=== PATIENT | male | born 1945 | race Caucasian/White ===

== ENCOUNTER 2024-05-10 14:04 | Inpatient (IN) | payer MEDICARE, OTHER, SELFPAY ==
[2024-05-10 09:49] VITALS: BP 121/54
--- NOTE | 2024-05-10 09:57 | ED.GENMED ---
History of Present Illness
General
Chief Complaint: Breathing Problem
Source: ambulance crew
Exam Limitations: altered mental status and dementia
Time Seen by Provider: 05/10/24 09:49
Nursing documentation reviewed up to this point in time: agreed with
History of Present Illness
History of Present Illness:
78-year-old male presents emergency ferment due to altered mental status and respiratory distress. Oxygen 80% on room air. He is from [facility]. He has limited verbal responses. History of CVA.
Past History
Past History
ED Past Medical History: COPD, CVA (Right hemiparesis, Aphasia), HTN, Psychiatric (Depression) and Other (Cellulitis, dementia, aphasia, PVD,)
ED Past Surgical History: None
Social History
Tobacco: Former smoker
Alcohol: None
Drug: None
Personal: Single
Living: shelter
Employment: Not employed
Family History
Family History: Unable to obtain
Review of Systems
Review of Systems
Allergies reviewed?: Yes
Unable to obtain full review of systems at this time due to: dementia
All Other Systems: Not applicable
Phy Exam
Physical Exam
Physical Exam:
Physical Exam
General: Afebrile
Neck: supple. no meningeal signs. normal posterior pharynx
Heart: s1/s2 regular rate and rhythm, no murmur. equal radial
pulses.
HEENT: Pupils equal round reactive to light, EOMI
Lungs: no acute respiratory distress. clear bilaterally
Abdomen: normal bowel sounds. not tender. no CVAT
Neuro: alert but not oriented. no focal neurological deficits cranial nerves II through XII intact
Skin: no rash
Psychiatric: well kept. interactive and cooperative
Extremities: no edema. no calf tenderness. negative homans. good distal pulses
Scores
Heart Failure Risk
Heart Failure Risk Score: Not Applicable
Sepsis
Sepsis Screening
Sepsis Assessment: Sepsis
Sepsis Screen
Sepsis Screen: Sepsis
Date: 05/10/24
Time: 15:59
Course
Orders/Labs/Results
Orders:
Orders
05/10/24 09:55
Cardiac Monitoring- Treatment ONCE
IV Insert/Care/Rem.- Treatment PRN
O2 Therapy [RESP] Stat
Nasal Cannula Liter Flow: 6 LPM
Titrate/Wean O2 to maintain O2 sat greater than (%): 92
Pulse Ox/cont/shift [RESP] Stat
Quantity: 1
05/10/24 09:56
Electrocardiogram (*1) Stat
Reason for Study: Other
Other Reason for Exam: pneumonia
EKG- Treatment ONCE
CR Chest Single View Urgent
Reason For Exam: hypoxia, altered mental status
05/10/24 10:13
Complete Blood Count/With Diff Urgent
Comprehensive Metabolic Panel Urgent
Lactic Acid Q4H
Comment: CANCEL 2nd LACTIC ACID IF 1st LACTIC ACID IS LESS THAN 2
NT-proBNP Urgent
Troponin I Urgent
05/10/24 13:19
Piperacillin/Tazo 2.25 Gram [Zosyn] 2.25 grams in 50 ml IV NOW
05/10/24 13:21
Vancomycin [Vancocin] 2,000 mg 0.9% Sodium Chloride 500 ml [Nss] 500 ml IV NOW
05/10/24 13:28
0.9% Sodium Chloride 1000 ml [Nss] 1,000 ml IV BOLUS
05/10/24 13:45
Azithromycin 500 mg/250 ml [Zithromax Infusion] 500 mg in 250 ml IV NOW
Ipratropium/Albuterol Sulfate [Duoneb] 3 ml INH R NOW ONE
05/10/24 13:47
Admit/Transfer Patient As Directed
Co-Sign Provider:
Level of Care: Inpatient admission
Assign to:: Telemetry
Physician / Group: Sultana Sauceda
Diagnosis: hypoxic resp insufficiency, CAP
Reason for Telemetry: Chest Pain syndromes
Date to Stop Telemetry: 05/12/24
Time to Stop Telemetry: 11:00
Reason for Hospitalization: hypoxic resp insufficiency, CAP
Expected length of stay greater than two midnights?: Yes
ELOS- Estimated Length of Stay in days: 3
I certify the patient meets the requirements for IP care: Yes
PRN Pain Medication Management As Directed
May give lesser potent ordered pain med per pt: Yes
preference::
Protocol:: Medication orders for pain may be administered in a
manner that supports deferring to patient preference
when the pt is:
- Requesting an ordered lesser potent pain medication.
Least to most potent pain medications are defined
as: acetaminophen < NSAID < tramadol < opioids
(morphine, oxycodone, hydromorphone).
- Requesting a lesser dose of the same medication IF
ORDERED.
- Requesting a less intrusive route of administration
if both routes are prescribed by the provider (PO <
IV).
05/10/24 13:50
Code Status As Directed
Resuscitation Status: Do not resuscitate
Reached after discussion with pt or family/Healthcare POA: Yes
CefTRIAXone [Rocephin] 1,000 mg IV NOW STA
05/10/24 13:52
DNR Bracelet Application ONCE
05/10/24 13:59
Sterile Water [Sterile Water For Injection] 10 ml IV NOW STA
05/10/24 14:00
Speech Therapy Eval & Treat Routine
05/10/24 14:05
COVID-19 Antigen Urgent
Source: Nasal Swab
Lactic Acid Q4H
Comment: CANCEL 2nd LACTIC ACID IF 1st LACTIC ACID IS LESS THAN 2
Influenza A+B Rapid Molecular Urgent
ALE Source: Nasal Swab
Specimen Description:
05/12/24 11:00
DC Protocol for Telemetry ONCE
Abnormal Lab Results
05/10/24
10:13
MCV 95.4 H fL
(80.0-94.0)
MCHC 30.7 L g/dL
(33.0-37.0)
Absolute Neuts (auto) 9.0 H 10^3/uL
(1.4-6.5)
Absolute Lymphs (auto) 1.0 L 10^3/uL
(1.2-3.4)
Neutrophils % 84.9 H %
(42.2-75.2)
Lymphocytes % 9.4 L %
(20.5-51.1)
BUN 51 H mg/dl
(9-20)
Creatinine 1.9 H mg/dL
(0.7-1.3)
Glucose 160 H mg/dl
(70-99)
Lactic Acid 2.1 H mmol/L
(0.7-2.0)
AST 78 H U/L
(17-59)
Troponin I 0.049 H* ng/ml
05/10/24 10:13
05/10/24 10:13
Vital Signs
Initial and Last Documented VS:
Initial Vital Signs
Pulse Resp BP Pulse Ox
113 20 121/54 89
05/10/24 09:49 05/10/24 09:49 05/10/24 09:49 05/10/24 09:49
Last Documented Vital Signs
Temp Pulse Resp BP Pulse Ox
99.3 F 106 27 122/61 94
05/10/24 10:24 05/10/24 15:00 05/10/24 15:00 05/10/24 11:00 05/10/24 10:24
MDM/Problems Addressed
Differential Diagnosis Includes:
Pneumonia, CHF, COPD
MDM/Problems Addressed:
78-year-old male with pneumonia, hypoxia. Admit to hospitalist.
Chronic conditions affecting care: COPD and Other (Dementia)
Acute Exacerbation and/or Progression of Chronic Illness: COPD and Other (Dementia)
*Radiology
Radiology exam reviewed: radiology read reviewed (Chest x-ray shows right basilar opacification)
*Pulse Oximetry
Patient hypoxic: yes
*EKG
Interpreted by ED Provider?: Yes
EKG Intrepretation Date: 05/10/24
EKG Intrepretation Time: 10:09
Interpretation: abnormal
Comparison EKG: no comparison EKG present
Heart Rate: 115
Rate: tachycardiac
Rhythm: sinus tachycardia
[place]: normal axis
Interval: normal interval
QRS Pattern: normal QRS
Ischemia: no ischemia
*Chemical Production Technician Interpretation
Rate: tachycardiac
Interpretation: abnormal
Heart Rate: 112
Rhythm: sinus tachycardia
*Critical Care Note
Total Time (30-74mins, 75-104mins- exclusive of procedures): 30
comment:
Critical care statement: A total of 30 minutes of critical care time was provided for this patient. This includes management of unstable vital signs, evaluation of the patient at bedside, reviewing the patient's pertinent medical records, discussion
with consultants, review of old EKGs and review of pertinent medical records. This time with separate from time utilized to perform the aforementioned documented procedures
Data Reviewed
Review of Other/Old Records Reveals: Labs (creatinine 0.9, on 08/21/19)
Source: records
Patient Management
Social determinants of health affecting care: Living situation and Poor social support
Discussion with other providers: Hospitalist
Escalation/DeEscalation of care consider admission/obs:
admit indicated
ED Attending Note
-
Portions of this chart may have been created with voice recognition software.� Occasional wrong word or��sound alike� substitutions may have occurred due to the inherent limitations of voice recognition software.
Discharge Plan
Departure
Patient Disposition: Admit
Date of Disposition: 05/10/24
Time of Disposition: 13:23
Admit to: Telemetry
Presentation/result/management discussed w/ accepting MD/DO: Hospitalist
Patient with high blood pressure during this ER visit?: Yes
Condition: Fair
Discharge Problem:
Pneumonia, Hypoxia, Acute renal failure
Interventions
Interventions:
*Risk Screen - Suicide Last Done: 05/10/24 09:50
*General Assessment Last Done: 05/10/24 09:50
*Neglect/Abuse Screening Last Done: 05/10/24 09:50
ED- Fall Risk Assessment Last Done: 05/10/24 10:24
*ED COVID-19 Vaccine History Last Done: 05/10/24 09:50
*Nursing Disposition Last Done: 05/10/24 15:54
ED- Cardiac Assessment Last Done: 05/10/24 10:24
ED- Pulmonary Assessment Last Done: 05/10/24 10:24
[2024-05-10 10:28] LABS: % Basophils 0.2 % (0-2); % Immature Granulocytes 0.3 % (0-0.5); % Lymphocytes 9.4 % (20.5-51.1); % Monocytes 5.2 % (1.7-9.3); % Neutrophils 84.9 % (42.2-75.2); Absolute Monocytes 0.6 10^3/uL (0.1-0.6); Hematocrit 47.5 % (39.0-52.0); Hemoglobin 14.6 g/dL (13.0-18.0); Mean Corp Hgb Conc. 30.7 g/dL (33.0-37.0); Mean Corpuscular Hgb 29.3 pg (27.0-31.0); Mean Corpuscular Volume 95.4 fL (80.0-94.0); Mean Platelet Volume 9.6 fL (7.4-10.4); Nucleated Red Blood Cells % 0 % (-); Platelet Count 220 10^3/uL (130-400); Red Blood Cell Count 4.98 10^6/uL (4.70-6.10); Red Cell Dist. Width 14.4 % (11.5-14.5); White Blood Cell Count 10.6 10^3/uL (4.8-10.8)
[2024-05-10 10:38] LABS: Lactic Acid 2.1 mmol/L (0.7-2.0)
[2024-05-10 10:43] LABS: ALT (SGPT) 32 U/L (0-50); AST (SGOT) 78 U/L (17-59); Albumin 3.5 g/dl (3.5-5.0); Alkaline Phosphatase 85 U/L (38-126); Blood Urea Nitrogen 51 mg/dl (9-20); Calcium 8.4 mg/dl (8.4-10.2); Carbon Dioxide 24 mmol/L (22-30); Chloride 107 mmol/L (98-107); Glucose 160 mg/dl (70-99); Potassium 4.2 mmol/L (3.5-5.1); Sodium 142 mmol/L (135-145); Total Bilirubin 0.6 mg/dl (0.2-1.3); Total Protein 6.6 g/dl (6.3-8.2); eGFR 35.88
[2024-05-10 10:53] LABS: NT-proBNP 1010 pg/ml; Troponin I 0.049 ng/ml
[2024-05-10 11:00] VITALS: BP 122/61
--- NOTE | 2024-05-10 13:29 | HPS.HSE ---
Addendum entered and electronically signed by Sultana Sauceda MD 05/14/24 07:09:
Non-ischemic myocardial injury
Addendum entered and electronically signed by Sultana Sauceda MD 05/10/24 19:17:
non-SC Troponin Elevation in setting of Influenza
-trend
Addendum entered and electronically signed by Sultana Sauceda MD 05/10/24 15:01:
Patient is Influenza positive, will start Tamiflu
Addendum entered and electronically signed by Sultana Sauceda MD 05/10/24 14:05:
attempted to update contact in chart and received busy signal
Original Note:
Family Physician
-
Family Physician: Nick Shoemaker
Chief Complaint
-
shortness of breath
History of Present Illness
Mr. Chris Nick is a 78 yo man with hx CVA (right Hemiparesis, aphasia), [place] resident at [facility], COPD, essential HTN, Depression, Seizures, CKD IIIa presents to the ER with change in mentation and low pulse ox seen at [place].
Patient unable to give history. He only answers yes or no answers. He appears flushed with wet sounding cough. He was found to have SpO2 80% at IA an is now on 6L. He denies pain.
Medical History
Past Medical History
Past Medical History: Reports Other
Additional Past Medical History:
CVA (right Hemiparesis, aphasia)
COPD
Essential HTN
Depression
Seizures
CKD IIIa
Past Surgical History: Reports Other
Social History
Unable to obtain full social history at this time due to: Patient Non-verbal (expressive aphasia )
Family History
Family History: Not pertinent
Allergies / Home Medications
Allergies reflects when Allergies were last updated in [employer].
Home Medications with original date entered in [employer]
Allergy/Medication List:
Allergies
Allergy/AdvReac Type Severity Reaction Status Date / Time
aspirin Allergy Unknown Verified 08/20/19 16:04
Home Medications
acetaminophen 325 mg tablet 650 mg PO Q4HPRN PRN mild pain, 1-4/fever>100F 02/09/13
latanoprost 0.005 % eye drops 1 drp BOTH EYES QPM 02/09/13
magnesium hydroxide 400 mg/5 mL oral suspension 30 ml PO DAILYPRN PRN if no bm in 3 days 02/09/13
sodium phosphates 19 gram-7 gram/118 mL enema (Enema) 118 ml FL DAILYPRN PRN if dulcolax ineff in 24H ##0 02/07/15
bisacodyl 10 mg rectal suppository (OneLAX Bisacodyl) 10 mg FL DAILYPRN PRN if MOM ineff in 24 hours 03/29/17
levetiracetam 500 mg tablet 500 mg PO BID 01/17/18
atorvastatin 20 mg tablet 20 mg PO QPM 02/07/18
clopidogrel 75 mg tablet 75 mg PO DAILY 02/07/18
ipratropium 0.5 mg-albuterol 3 mg (2.5 mg base)/3 mL nebulization soln 3 ml inhalation R Q6HPRN PRN sob/wheezing 02/07/18
docusate sodium 100 mg capsule 100 mg PO HS 06/09/18
pilocarpine HCl 1 % eye drops 1 drops BOTH EYES DAILY 08/20/19
famotidine 20 mg tablet (Pepcid) 20 mg PO DAILY 05/10/24
guaifenesin 600 mg tablet, extended release 12 hr (Mucus Relief ER) 600 mg PO BID 05/10/24
ipratropium 20 mcg-albuterol 100 mcg/actuation mist for inhalation 1 puff inhalation R [id number] PRN CHF 05/10/24
lisinopril 5 mg tablet 5 mg PO DAILY 05/10/24
nifedipine 30 mg tablet,extended release 90 mg PO DAILY 05/10/24
Review of Systems
-
History Source: Patient
A 12 point ROS was completed and negative except as noted: Yes
Physical Exam
Vital Signs
Vital Signs
Temp Pulse Resp BP Pulse Ox
99.3 F 109 31 122/61 94
05/10/24 10:24 05/10/24 11:45 05/10/24 11:45 05/10/24 11:00 05/10/24 10:24
Physical Exam
General: Other (appears flushed with wet sounding cough, no 6L NC )
HEENT: PERRLA
Respiratory: Rhonchi; No Wheezes
Cardiac: S1/S2 and Regular Rhythm
GI: Soft, Non Tender and Non Distended
Musculoskeletal: No Edema
Skin: Warm and Dry; No Rash
Neuro: Awake, Alert and Other (expressive aphasia, right-sided hemiparesis. follows commands and can lift left arm )
Psych: Calm
Laboratory Results
-
05/10/24 10:13
05/10/24 10:13
Laboratory Results
Lactic Acid 2.1 mmol/L (0.7-2.0) H 05/10/24 10:13
Total Bilirubin 0.6 mg/dl (0.2-1.3) 05/10/24 10:13
AST 78 U/L (17-59) H 05/10/24 10:13
ALT 32 U/L (0-50) 05/10/24 10:13
Alkaline Phosphatase 85 U/L (38-126) 05/10/24 10:13
Troponin I 0.049 ng/ml H* 05/10/24 10:13
Data Reviewed
-
Diagnostic Radiology: Report Reviewed by me
Lab Data: Labs Reviewed by me
Impression/Plan
-
Mr. Chris Nick is a 78 yo man with hx CVA (right Hemiparesis, aphasia), [place] resident at [facility], COPD, essential HTN, Depression, Seizures, CKD IIIa presents to the ER with change in mentation and low pulse ox seen at [place].
Triage VS: T 99.3, P 113, RR 20, BP 121/54, SpO2 89%
LABS: WBC 10.6, Hg 14.6, PLT 220, Na 142, K+ 4.2, Cl 107, BUN 51, Cr 1.9, Glucose 160, Lactate 2.1, Trop 0.049, BNP 1010
CXR:
IMPRESSION:
Low lung volumes.
Mild right basilar opacification most likely representing subsegmental atelectasis. Pneumonia cannot be excluded.
MAR: Vanc/Zosyn
Severe Sepsis secondary to pneumonia
Acute Hypoxia respiratory insufficiency 2/2 above
-patient with rhonchi on lung exam and wet sounding cough.
-Will check Flu and Covid
-Start treatment for CAP with Ceftriaxone/Azithromycin
-receiving 1L IVF in ER for lactate 2.1, trend and bolus as needed
-NS @ 80
-O2 support as needed
-Given risk for aspiration in setting of fatigue/change in mentation noted at IA, will keep NPO until ST Eval; meds OK with apple sauce (eats regular diet/thins at IA)
-duonebs standing and PRN
-Mucinex, Acapella
-PT/OT/ST
Expressive Aphasia
Hx CVA
[place] Resident
-FUR TRIMMING MACHINE OPERATOR Plavix/Statin
Hx COPD
-no active wheezing heard on exam
-duonebs as above
NESSA on CKD IIIa
-creatinine was 1.16 02/2023
-NESSA in setting of sepsis
-IVF as above
-hold FUR TRIMMING MACHINE OPERATOR ERIKA-I
Essential Hypertension
-hold FUR TRIMMING MACHINE OPERATOR Lisinopril with NESSA
-FUR TRIMMING MACHINE OPERATOR Nifedeipine
Epilepsy
-IV Keppra for now - change to oral based on ability to take PO meds
DVT PPx: Hep subQ
DNR - based on POLST form
76 minutes spent on patient care
[2024-05-10 14:37] LABS: Lactic Acid 0.9 mmol/L (0.7-2.0)
[2024-05-10 14:40] LABS: COVID-19 Antigen Negative (Negative)
[2024-05-10] MEDS: ROCEPHIN 1000 MG IV (14:47)
[2024-05-10] MEDS: ZITHROMAX INFUSION 250 IV (14:50)
[2024-05-10] MEDS: NSS 1000 IV ×2 (14:52→17:18)
[2024-05-10] MEDS: DUONEB 3 ML INH ×3 (14:54→19:53)
[2024-05-10] MEDS: STERILE WATER FOR INJECTION 10 ML IV (14:57)
--- NOTE | 2024-05-10 15:59 | PTOTSP ---
Dysphagia Evaluation
Patient with a history of mild-moderate oral/pharyngeal dysphagia per video swallow study 03/16/2018. Chronic risk factors for dysphagia noted (i.e., CVA, COPD) and elevated given acute illness with sepsis, flu and PNA. Cannot rule out worsened
pharyngeal dysphagia bedside.
Recommend:
1. IDDSI Level 5 Minced and Moist, Thin Liquids
2. Medications: in puree
3. Strategies: upright to 90 degrees, full supervision/assistance, single sips/bites, reflux precautions
4. Oral care 3x daily
5. If clinical concerns for aspiration consider repeat video swallow study if aligned with patient goals. Patient shook head no when this was discussed.
6. Dysphagia therapy at the acute care level for education, instruction in compensations, and to determine if diet advancement appropriate
[2024-05-10 16:16] VITALS: BP 120/63; BMI 25.7
--- NOTE | 2024-05-10 16:30 | PTCARENOTE ---
Received patient from ED. Patient here with CAP.
Placed on Telemetry (Box #11), SR-ST with PAC's and PVC's. AAOXself, with expressive aphasia and right sided hemiparesis/paralysis. Completed incontinence care, placed condom catheter.
[2024-05-10] MEDS: TAMIFLU 75 MG PO (17:19)
[2024-05-10] MEDS: XALATAN OPHTHALMIC SOLUTION 1 DROP BOTH EYES (17:19)
[2024-05-10] MEDS: LIPITOR 20 MG PO (17:20)
[2024-05-10] MEDS: KEPPRA 500 MG IV (20:18)
[2024-05-10] MEDS: HEPARIN 5000 UNITS SC (20:18)
[2024-05-10] MEDS: MUCINEX 600 MG PO (20:18)
[2024-05-10] MEDS: COLACE PO (20:58)
[2024-05-10 23:26] VITALS: BP 121/56
[2024-05-11] VITALS (9 sets, daily range): BP systolic 88–127; BP diastolic 52–68; PULSE 137; O2SAT 90; BMI 25.7
[2024-05-11] MEDS: DUONEB 3 ML INH ×4 (00:44→19:35)
[2024-05-11 03:56] LABS: % Basophils 0.1 % (0-2); % Immature Granulocytes 0.4 % (0-0.5); % Lymphocytes 14.5 % (20.5-51.1); % Monocytes 6.9 % (1.7-9.3); % Neutrophils 78.1 % (42.2-75.2); Absolute Monocytes 0.5 10^3/uL (0.1-0.6); Absolute Neutrophils 5.5 10^3/uL (1.4-6.5); Hematocrit 42.8 % (39.0-52.0); Hemoglobin 13.1 g/dL (13.0-18.0); Mean Corp Hgb Conc. 30.6 g/dL (33.0-37.0); Mean Corpuscular Hgb 29.6 pg (27.0-31.0); Mean Corpuscular Volume 96.6 fL (80.0-94.0); Mean Platelet Volume 9.4 fL (7.4-10.4); Nucleated Red Blood Cells % 0 % (-); Platelet Count 177 10^3/uL (130-400); Red Blood Cell Count 4.43 10^6/uL (4.70-6.10); Red Cell Dist. Width 14.7 % (11.5-14.5)
[2024-05-11] MEDS: NSS 1000 IV ×2 (04:08→17:25)
[2024-05-11 04:17] LABS: Blood Urea Nitrogen 41 mg/dl (9-20); Calcium 7.8 mg/dl (8.4-10.2); Carbon Dioxide 25 mmol/L (22-30); Chloride 111 mmol/L (98-107); Estimated Creatinine Clearance 44 ml/min; Glucose 94 mg/dl (70-99); Magnesium 2.7 mg/dl (1.6-2.3); Potassium 4.3 mmol/L (3.5-5.1); Sodium 143 mmol/L (135-145); eGFR 51.77
[2024-05-11 04:20] LABS: Troponin I 0.019 ng/ml
[2024-05-11] MEDS: EYE BOTH EYES (08:37)
[2024-05-11] MEDS: KEPPRA 500 MG IV ×2 (08:37→20:17)
[2024-05-11] MEDS: HEPARIN 5000 UNITS SC ×2 (08:37→20:18)
[2024-05-11] MEDS: PEPCID 20 MG PO (08:37)
[2024-05-11] MEDS: PROCARDIA XL (EXTENDED RELEASE) 90 MG PO (08:37)
[2024-05-11] MEDS: ISOPTO CARPINE BOTH EYES (08:37)
[2024-05-11] MEDS: PLAVIX 75 MG PO (08:37)
[2024-05-11] MEDS: TAMIFLU 30 MG PO ×2 (08:37→20:18)
[2024-05-11] MEDS: MUCINEX 600 MG PO ×2 (08:38→20:17)
--- NOTE | 2024-05-11 10:39 | PN.CDI ---
CDI
- -
CDI:
Physician Documentation Request
Admit Date: 05/10/24 14:04
Dear Doctor Sohail,
Patient admitted for sepsis.
05/10 H&P: 'non-MS Troponin Elevation in setting of Influenza'
Laboratory Tests
05/10/24 05/10/24
10:13 20:16
Troponin I 0.049 H* 0.020
Please clarify the following regarding the documented troponin elevation:
Non-ischemic myocardial injury
Lab abnormality
Other
Use of terms such as suspected, likely, concern for, or probable (associated with a specific diagnosis that is being evaluated, monitored, or treated as if it exists) are acceptable and can be coded in the inpatient setting, when documented at the
time of discharge.
Thank you,
Renetta Mcdaniel RN, BSN
CDI Specialist
Available via [employer] text
Please use your independent medical judgment in providing your response.
--- NOTE | 2024-05-11 10:42 | PTCARENOTE ---
pt wakes to name. no movement seen in right arm or leg. expressive aphasia. can let needs known. 6lnc. breath sounds course diminished. inc of stool. and urine
--- NOTE | 2024-05-11 11:30 | W.PN.HOSP.TC ---
Today's Communication/Plan
-
check Echo
continue IVF, monitor for overload
continue IV Abx, Tamiflu
wean O2 as able
Assessment / Plan
Assessment / Plan
Assessment:
Severe Sepsis (tachycardia, tachypnea, lactic acidosis) secondary to pneumonia and Influenza A
Acute Hypoxia respiratory insufficiency 2/2 above
- wean O2 as able; currently on 6L NC
- continue Ceftriaxone, Azithromycin day 1. Check sputum. COVID negative.
- continue Tamiflu day 1
- respiratory precautions
- continue IVF
- ST evaluation prior to PO meds, diet
- mucolytics, IS, Acapella
- standing/prn nebs
- PT/OT
Nonischemic trop elevation
- peaked at .049
Expressive Aphasia
Hx CVA with R sided weakness
- continue Plavix/Statin
Hx COPD
- no active wheezing heard on exam
- duonebs as above
NESSA on CKD IIIa
- creatinine was 1.16 02/2023
- NESSA in setting of sepsis
- IVF as above
- hold THREAD PULLING MACHINE ATTENDANT ERIKA-I
- follow BMP
Essential Hypertension
- hold ERIKA and Nifedipine; hypotension with sepsis
Epilepsy
- IV Keppra for now - change to oral based on ability to take PO meds
DVT ppx: SC heparin
Code: DNR/DNI
Anticipated Discharge: > 48 hours
Subjective/Interval History
-
Date of Service: May 11, 2024
Objective Data
-
Labs:
Laboratory Results
24 05/11/24
03:37 03:38
WBC 7.0
Hgb 13.1
Hct 42.8
Plt Count 177
Sodium 143
Potassium 4.3
Chloride 111 H
Carbon Dioxide 25
BUN 41 H
Creatinine 1.4 H
Glucose 94
Calcium 7.8 L
Vital Signs:
Vital Signs
Temp Pulse Resp BP Pulse Ox
98.4 F 126 22 92/60 93
05/11/24 07:22 05/11/24 08:37 05/11/24 07:36 05/11/24 08:37 05/11/24 07:36
I&O
05/10/24 05/11/24 05/12/24
06:59 06:59 06:59
Output Total 240 / 240
Balance -240 / -240
Data Reviewed
-
Total Time Spent with Patient (in minutes): 44
Labs: Labs Reviewed by me
[2024-05-11] MEDS: ZITHROMAX 500 MG PO (13:31)
[2024-05-11] MEDS: ROCEPHIN 1000 MG IV (13:32)
[2024-05-11] MEDS: STERILE WATER FOR INJECTION 10 ML IV (13:32)
[2024-05-11] MEDS: DUONEB INH (15:27)
[2024-05-11] MEDS: LIPITOR 20 MG PO (17:24)
[2024-05-11] MEDS: XALATAN OPHTHALMIC SOLUTION 1 DROP BOTH EYES (17:24)
[2024-05-11] MEDS: COLACE 100 MG PO (20:19)
[2024-05-12 03:05] VITALS: BP 115/61
[2024-05-12] MEDS: NSS 1000 IV (05:03)
[2024-05-12 06:00] VITALS: BMI 26.2
[2024-05-12 07:30] VITALS: BP 113/69
[2024-05-12] MEDS: DUONEB 3 ML INH ×4 (07:32→19:45)
[2024-05-12 07:43] LABS: Hematocrit 39.2 % (39.0-52.0); Hemoglobin 12.1 g/dL (13.0-18.0); Mean Corp Hgb Conc. 30.9 g/dL (33.0-37.0); Mean Corpuscular Hgb 29.8 pg (27.0-31.0); Mean Corpuscular Volume 96.6 fL (80.0-94.0); Mean Platelet Volume 9.6 fL (7.4-10.4); Platelet Count 153 10^3/uL (130-400); Red Blood Cell Count 4.06 10^6/uL (4.70-6.10); Red Cell Dist. Width 14.3 % (11.5-14.5); White Blood Cell Count 4.2 10^3/uL (4.8-10.8)
[2024-05-12 08:13] LABS: ALT (SGPT) 34 U/L (0-50); AST (SGOT) 59 U/L (17-59); Albumin 2.5 g/dl (3.5-5.0); Alkaline Phosphatase 73 U/L (38-126); Blood Urea Nitrogen 29 mg/dl (9-20); Calcium 7.4 mg/dl (8.4-10.2); Carbon Dioxide 24 mmol/L (22-30); Chloride 108 mmol/L (98-107); Estimated Creatinine Clearance 56 ml/min; Glucose 89 mg/dl (70-99); Potassium 4.1 mmol/L (3.5-5.1); Sodium 137 mmol/L (135-145); Total Bilirubin 0.2 mg/dl (0.2-1.3); Total Protein 5.1 g/dl (6.3-8.2); eGFR > 60.00
[2024-05-12] MEDS: KEPPRA 500 MG IV ×2 (09:25→20:44)
[2024-05-12] MEDS: HEPARIN 5000 UNITS SC ×2 (09:26→20:44)
[2024-05-12] MEDS: PEPCID 20 MG PO (09:27)
[2024-05-12] MEDS: TAMIFLU 30 MG PO ×2 (09:27→20:45)
[2024-05-12] MEDS: ISOPTO CARPINE BOTH EYES (09:28)
[2024-05-12] MEDS: MUCINEX 600 MG PO ×2 (09:28→20:45)
[2024-05-12] MEDS: PLAVIX 75 MG PO (09:28)
[2024-05-12] MEDS: EYE BOTH EYES (09:28)
--- NOTE | 2024-05-12 09:52 | W.PN.HOSP.TC ---
Today's Communication/Plan
-
wean O2
cap IVF
ST evaluation
Assessment / Plan
Assessment / Plan
Assessment:
Severe Sepsis (tachycardia, tachypnea, lactic acidosis) secondary to pneumonia and Influenza A
Acute Hypoxia respiratory insufficiency 2/2 above
- wean O2 as able; currently on 6L NC
- continue Ceftriaxone, Azithromycin day 2. Check sputum. COVID negative.
- continue Tamiflu day 2
- respiratory precautions
- cap IVF
- ST evaluation pending
- mucolytics, IS, Acapella
- standing/prn nebs
- PT/OT
Nonischemic trop elevation
- peaked at .049
Expressive Aphasia
Hx CVA with R sided weakness
- continue Plavix/Statin
Hx COPD
- no active wheezing heard on exam
- duonebs as above
NESSA on CKD IIIa
- creatinine was 1.16 02/2023
- NESSA in setting of sepsis
- IVF as above
- hold ORGAN PIPE FINISHER ERIKA-I
- follow BMP
Essential Hypertension
- hold ERIKA and Nifedipine; avoiding hypotension with sepsis
Epilepsy
- IV Keppra for now - change to oral based on ability to take PO meds
DVT ppx: SC heparin
Code: DNR/DNI
Anticipated Discharge: > 48 hours
Subjective/Interval History
-
Date of Service: May 12, 2024
remains on 6L NC, 96% saturation
Denies any changes
Objective Data
-
Labs:
Laboratory Results
05/12/24
07:10
WBC 4.2 L
Hgb 12.1 L
Hct 39.2
Plt Count 153
Sodium 137
Potassium 4.1
Chloride 108 H
Carbon Dioxide 24
BUN 29 H
Creatinine 1.1
Glucose 89
Calcium 7.4 L
Total Bilirubin 0.2
AST 59
ALT 34
Alkaline Phosphatase 73
Vital Signs:
Vital Signs
Temp Pulse Resp BP Pulse Ox
98.4 F 92 20 113/69 96
05/12/24 07:30 05/12/24 07:36 05/12/24 07:36 05/12/24 07:30 05/12/24 09:00
I&O
05/11/24 05/12/24 05/13/24
06:59 06:59 06:59
Intake Total 1680 / 1680
Output Total 240 / 240 180 / 180
Balance -240 / -240 1500 / 1500
Physical Exam
-
General: No Apparent Distress
HEENT: Normocephalic and Atraumatic
Respiratory: Rhonchi and Decreased Breath Sounds
Cardiac: Regular Rhythm and S1/S2
GI: Soft and Nontender
Genito-urinary: No Costovertebral Tender
Musculoskeletal: No Clubbing
Neuro: AO x 3
Hematologic / Lymphatic: No Lymphadenopathy
Psych: Calm
Data Reviewed
-
Total Time Spent with Patient (in minutes): 45
Labs: Labs Reviewed by me
[2024-05-12 11:38] VITALS: BP 134/58
--- NOTE | 2024-05-12 11:54 | PTOTSP ---
Speech therapy
Per RN, patient was seen to pocket PO on right side of oral cavity.
Presentation: Patient was seen laying in his bed and confused. Patient was not oriented to any of the orientation questions. With multiple choice options, patient was able to state his name. Patient was very agitated and stated that he was upset
with his condition. FIELD TALENT QUALIFICATION SPECIALIST spent majority of the session educating patient on FIELD TALENT QUALIFICATION SPECIALIST recommendations and findings. FIELD TALENT QUALIFICATION SPECIALIST explained to patient the purpose of dysphagia therapy in which patient verbalized an understanding.
FIELD TALENT QUALIFICATION SPECIALIST attempted to complete oral care in which patient refused and took out his dentures (top). Dentures, of note, appeared to have debris on them. FIELD TALENT QUALIFICATION SPECIALIST offered to clean the dentures in which patient refused and placed them back in.
FIELD TALENT QUALIFICATION SPECIALIST provided education on aspiration, oral hygiene, and the importance of oral hygiene in reference to aspiration pna. Patient verbalized an understanding and refused to allow FIELD TALENT QUALIFICATION SPECIALIST to perform oral care.
FIELD TALENT QUALIFICATION SPECIALIST spent time educating patient on PO trials. Patient agreed to trial PO. At baseline, patient demonstrated wet coughing, throat clearing, and wet appearing labored breathing. FIELD TALENT QUALIFICATION SPECIALIST attempted to elevate patient's head in which he screamed, became
agitated and refused to remain upright. Patient's wet vocal quality and coughing continued. FIELD TALENT QUALIFICATION SPECIALIST lowered his head and educated patient on aspiration precautions.
FIELD TALENT QUALIFICATION SPECIALIST reviewed the session's education, reviewed findings (wet vocal quality and coughing at baseline), and oral hygiene. Patient was not interested and asked FIELD TALENT QUALIFICATION SPECIALIST to leave.
Given the above (confusion, agitation, pocketing reported, wet vocal quality, wet coughing), recommend NPO at this time.
Plan: FIELD TALENT QUALIFICATION SPECIALIST will continue to follow; pending hospitalization.
[2024-05-12] MEDS: STERILE WATER FOR INJECTION 10 ML IV (13:09)
[2024-05-12] MEDS: ROCEPHIN 1000 MG IV (13:09)
[2024-05-12] MEDS: ZITHROMAX 500 MG PO (13:11)
[2024-05-12 15:25] VITALS: BP 128/66
--- NOTE | 2024-05-12 16:26 | PTCARENOTE ---
This am patient with noted pocketing. Speech therapist made aware. Patient refused to be seen by speech. Dr. Alexander ordered patient NPO.
--- NOTE | 2024-05-12 16:33 | CM ---
Patient from [facility] with Hx CVA with Expressive Aphasia. O2 5L. Receiving IV Abx, IV Keppra, Tamiflu. NPO/IVF. Seen by ST. PT Rolf; Return to LTC. OT Evkurt; return to LTC v skilled.
Spoke with Marya, [facility];
the patient resides there in LTC with an MA bed hold.
Patient is A/O at baseline, assisted with ADLs, w/c bound and is able to transfer himself.
He has no O2 or BiPAP setup at SNF.
No current PT provided.
The ph for report [phone], fax [phone].
Plan watch for O2 needs at d/c.
Plan return to [facility] when medically ready.
[2024-05-12] MEDS: LIPITOR 20 MG PO (16:53)
[2024-05-12] MEDS: XALATAN OPHTHALMIC SOLUTION 1 DROP BOTH EYES (16:53)
[2024-05-12 20:46] VITALS: BP 104/56
[2024-05-12] MEDS: COLACE 100 MG PO (20:46)
[2024-05-12 23:11] VITALS: BP 101/61
[2024-05-13 03:56] VITALS: BP 109/55
[2024-05-13 07:25] VITALS: BP 121/69
[2024-05-13] MEDS: DUONEB INH ×2 (07:47→07:49)
[2024-05-13] MEDS: KEPPRA 500 MG IV (09:32)
[2024-05-13] MEDS: MUCINEX 600 MG PO ×2 (09:33→21:17)
[2024-05-13] MEDS: PLAVIX 75 MG PO (09:33)
[2024-05-13] MEDS: PEPCID 20 MG PO (09:33)
[2024-05-13] MEDS: HEPARIN 5000 UNITS SC (09:33)
[2024-05-13] MEDS: TAMIFLU 30 MG PO ×2 (09:33→21:17)
[2024-05-13] MEDS: ISOPTO CARPINE BOTH EYES (09:34)
[2024-05-13] MEDS: EYE BOTH EYES (09:34)
[2024-05-13 11:20] VITALS: BP 131/69
[2024-05-13] MEDS: DUONEB 3 ML INH ×3 (11:23→19:24)
--- NOTE | 2024-05-13 12:24 | PTOTSP ---
Speech Therapy
Presentation: Patient positioned upright in his bed and was willing to participate in therapy. Patient continued to demonstrate expressive aphasia which appeared to be frustrating for patient.
Swallowing Function: FOOD SERVICE MANAGER presented patient with several small, single presentations of ice chips in which patient appeared to initially tolerate but when additional ice chips were presented and a tsp of thins was presented patient demonstrated
immediate reflexive wet, gurgly sounding coughs. Patient's vocal quality appeared to be wet in nature. Patient's breathing appeared to be more labored and wet in quality. Of note, patient is currently being treated by resp for pna.
Given patient's clinical presentation (overt pocketing on 05/12), overt s/sx of aspiration with presentations, and CVA, recommend NPO with VSE to r/o aspiration and quantify swallowing function.
Recommendations:
1) NPO at this time
2) Vigorous oral care
3) VSE to quantify swallowing function
4) Further speech and language evaluation
Plan: FOOD SERVICE MANAGER will continue to follow; pending hospitalization.
--- NOTE | 2024-05-13 13:38 | W.PN.HOSP.TC ---
Today's Communication/Plan
-
VSE in AM
continue IV Abx, Tamiflu
wean O2
Assessment / Plan
Assessment / Plan
Assessment:
Severe Sepsis (tachycardia, tachypnea, lactic acidosis) secondary to pneumonia and Influenza A
Acute Hypoxia respiratory insufficiency 2/2 above
- wean O2 as able; currently on 4L NC
- continue Ceftriaxone, Azithromycin day 3. Check sputum. COVID negative.
- continue Tamiflu day 3
- respiratory precautions
- cap IVF
- ST evaluation; for VSE Tuesday
- mucolytics, IS, Acapella
- standing/prn nebs
- PT/OT as able
Nonischemic trop elevation
- peaked at .049
Expressive Aphasia
Hx CVA with R sided weakness
- continue Plavix/Statin
Hx COPD
- no active wheezing heard on exam
- duonebs as above
NESSA on CKD IIIa
- creatinine was 1.16 02/2023
- NESSA in setting of sepsis
- IVF as above
- hold PUMP REBUILDER ERIKA-I
- follow BMP
Essential Hypertension
- hold ERIKA and Nifedipine; avoiding hypotension with sepsis
Epilepsy
- Keppra BID
DVT ppx: SC heparin
Code: DNR/DNI
Anticipated Discharge: > 48 hours
Subjective/Interval History
-
Date of Service: May 13, 2024
failed speech eval at bedside for diet, ok for meds
for VSE tomorrow
on 4 L at present
denies any SOB; resting
Objective Data
-
Vital Signs:
Vital Signs
Temp Pulse Resp BP Pulse Ox
97.7 F 89 20 131/69 94
05/13/24 11:20 05/13/24 11:25 05/13/24 11:25 05/13/24 11:20 05/13/24 11:25
I&O
05/12/24 05/13/24 05/14/24
06:59 06:59 06:59
Intake Total 1680 / 1680 360 / 360
Output Total 180 / 180
Balance 1500 / 1500 360 / 360
Physical Exam
-
General: No Apparent Distress
HEENT: Normocephalic and Atraumatic
Respiratory: Rhonchi and Decreased Breath Sounds
Cardiac: Regular Rhythm and S1/S2
GI: Soft
Neuro: Awake and Alert
Psych: Calm
Data Reviewed
-
Total Time Spent with Patient (in minutes): 44
Labs: Labs Reviewed by me
[2024-05-13] MEDS: ZITHROMAX 500 MG PO (13:52)
[2024-05-13] MEDS: ROCEPHIN IV (14:00)
[2024-05-13 15:20] VITALS: BP 121/71
[2024-05-13] MEDS: STERILE WATER FOR INJECTION IV (15:26)
[2024-05-13] MEDS: LIPITOR 20 MG PO (17:31)
[2024-05-13] MEDS: XALATAN OPHTHALMIC SOLUTION 1 DROP BOTH EYES (17:34)
--- NOTE | 2024-05-13 17:54 | PTCARENOTE ---
Received patient this am AAOx2. Pt has expressive aphasia secondary to old CVA. Pt uncooperative at times with care an taking medications. Pt refused IV Rocephin today. Pt educated on the importance of taking the IV antibiotic. Pt continued to
refuse. Dr. Alexander made aware. Pt turned an repositioned. Made patient comfortable. Cont to assess patient status.
[2024-05-13 19:27] VITALS: BP 119/58
[2024-05-13] MEDS: KEPPRA 500 MG PO (21:17)
[2024-05-13] MEDS: COLACE 100 MG PO (21:18)
[2024-05-13] MEDS: HEPARIN SC ×2 (21:18→21:44)
[2024-05-13 23:19] VITALS: BP 129/71
[2024-05-14 03:25] VITALS: BP 127/51
[2024-05-14] MEDS: DUONEB 3 ML INH ×4 (07:09→19:33)
[2024-05-14 07:35] VITALS: BP 128/51
[2024-05-14 08:15] LABS: ALT (SGPT) 37 U/L (0-50); AST (SGOT) 51 U/L (17-59); Albumin 2.8 g/dl (3.5-5.0); Alkaline Phosphatase 96 U/L (38-126); Blood Urea Nitrogen 20 mg/dl (9-20); Carbon Dioxide 31 mmol/L (22-30); Chloride 105 mmol/L (98-107); Estimated Creatinine Clearance 62 ml/min; Glucose 81 mg/dl (70-99); Sodium 140 mmol/L (135-145); Total Bilirubin 0.4 mg/dl (0.2-1.3); Total Protein 5.5 g/dl (6.3-8.2); eGFR > 60.00
[2024-05-14] MEDS: HEPARIN SC ×3 (08:30→20:37)
[2024-05-14] MEDS: EYE BOTH EYES (08:31)
[2024-05-14] MEDS: ISOPTO CARPINE BOTH EYES (08:31)
[2024-05-14] MEDS: PLAVIX 75 MG PO (08:31)
[2024-05-14] MEDS: KEPPRA 500 MG PO ×2 (08:32→20:18)
[2024-05-14] MEDS: TAMIFLU 30 MG PO ×2 (08:32→20:18)
[2024-05-14] MEDS: PEPCID 20 MG PO (08:32)
[2024-05-14] MEDS: MUCINEX 600 MG PO ×2 (08:32→20:18)
[2024-05-14 08:34] LABS: Hematocrit 40.5 % (39.0-52.0); Hemoglobin 12.9 g/dL (13.0-18.0); Mean Corp Hgb Conc. 31.9 g/dL (33.0-37.0); Mean Corpuscular Hgb 29.9 pg (27.0-31.0); Mean Corpuscular Volume 93.8 fL (80.0-94.0); Mean Platelet Volume 9.8 fL (7.4-10.4); Platelet Count 194 10^3/uL (130-400); Red Blood Cell Count 4.32 10^6/uL (4.70-6.10); Red Cell Dist. Width 13.6 % (11.5-14.5); White Blood Cell Count 4.9 10^3/uL (4.8-10.8)
--- NOTE | 2024-05-14 09:05 | PTOTSP ---
Speech Language Pathology
VIDEOFLUOROSCOPIC SWALLOWING EXAMINATION (VSE) completed. Mild oral and mild-mod pharyngeal dysphagia noted. Mod vallecular residue noted with intermittent trace base of tongue residue. Supraglottic penetration (PAS 3) with consecutive straw sips
of thin liquids and mildly thick liquids. No other penetration or any aspiration noted.
Recommend:
(1) Regular solids/thin liquids
(2) Aspiration precautions: sit upright, slow rate, single sips only via cup or straw, frequent sips of liquids during meals, full supervision
(3) Meds whole in puree
(4) FLORAL DESIGNER to continue to follow
[2024-05-14 11:44] VITALS: BP 133/69
--- NOTE | 2024-05-14 11:57 | W.PN.HOSP.TC ---
Today's Communication/Plan
-
wean O2
reg diet per ST
continue Tamiflu/Abx
Assessment / Plan
Assessment / Plan
Assessment:
Severe Sepsis (tachycardia, tachypnea, lactic acidosis) secondary to pneumonia and Influenza A
Acute Hypoxia respiratory insufficiency 2/2 above
- wean O2 as able; currently on 4L NC
- continue Ceftriaxone, Azithromycin day 08/27
- continue Tamiflu day 08/25
- respiratory precautions
- cap IVF
- ST evaluation; for VSE performed 05/14; regular diet/thin liquids
- mucolytics, IS, Acapella
- standing/prn nebs
- PT/OT as able
Nonischemic trop elevation
- peaked at .049
Expressive Aphasia
Hx CVA with R sided weakness
- continue Plavix/Statin
Hx COPD
- no active wheezing heard on exam
- duo-nebs as above
NESSA on CKD IIIa
- creatinine was 1.16 02/2023
- NESSA in setting of sepsis
- IVF as above
- hold SOCIAL MEDIA DESIGNER ERIKA-I
- follow BMP
Essential Hypertension
- resume ERIKA and Nifedipine
Epilepsy
- Keppra BID
DVT ppx: SC heparin
Code: DNR/DNI
Anticipated Discharge: > 48 hours
Subjective/Interval History
-
Date of Service: May 14, 2024
more alert today
on 4L NC
Objective Data
-
Labs:
Laboratory Results
05/14/24
07:16
WBC 4.9
Hgb 12.9 L
Hct 40.5
Plt Count 194 D
Sodium 140
Potassium 4.0
Chloride 105
Carbon Dioxide 31 H
BUN 20
Creatinine 1.0
Glucose 81
Calcium 8.0 L
Total Bilirubin 0.4
AST 51
ALT 37
Alkaline Phosphatase 96
Vital Signs:
Vital Signs
Temp Pulse Resp BP Pulse Ox
98.3 F 76 20 133/69 4
05/14/24 11:44 05/14/24 11:44 05/14/24 11:44 05/14/24 11:44 05/14/24 11:44
I&O
05/13/24 05/14/24 05/15/24
06:59 06:59 06:59
Intake Total 360 / 360
Output Total 5 / 1675
Balance 360 / 360 -1675 / -1675
Physical Exam
-
General: No Apparent Distress
HEENT: Normocephalic and Atraumatic
Respiratory: Rhonchi and Decreased Breath Sounds; Negative Wheezes
Cardiac: Regular Rhythm and S1/S2
GI: Soft
Musculoskeletal: No Edema
Neuro: AO x 3
Hematologic / Lymphatic: No Lymphadenopathy
Psych: Calm
Data Reviewed
-
Total Time Spent with Patient (in minutes): 44
Labs: Labs Reviewed by me
[2024-05-14] MEDS: STERILE WATER FOR INJECTION 10 ML IV (14:23)
[2024-05-14] MEDS: ROCEPHIN 1000 MG IV (14:23)
[2024-05-14] MEDS: FLUSH (NSS) 1 FLUSH IV (14:24)
[2024-05-14] MEDS: ZITHROMAX 500 MG PO (14:24)
[2024-05-14 15:21] VITALS: BP 140/71
--- NOTE | 2024-05-14 16:15 | PTCARENOTE ---
Pt awake and alert, oriented to self/birthdate; occ answers questions 'yes' and 'no' has (+) expressive aphasia. Pt with Rt sided hemiparesis; able to move LUE well; Lt leg sl weak. VSS. Currently on nc 2 lpm- pulse ox 94%, no SOB noted. Abd
large, soft, woody regular diet; pt able to feed self with much assistance. Pt voids small amts clear lt samuel urine in urinal; also spills urinal/incont. Resting in bed at present, no c/o. Will continue to monitor.
--- NOTE | 2024-05-14 16:26 | PTOTSP ---
Patient is not able to demonstrate functional abilities to sit EOB or roll.
Per notes/previous admission, patient has been and is dependent at baseline at LTC. No skilled acute PT needs. Will DC from PT services at this time. Informed RN.
[2024-05-14] MEDS: XALATAN OPHTHALMIC SOLUTION 1 DROP BOTH EYES (18:10)
[2024-05-14] MEDS: LIPITOR 20 MG PO (18:10)
[2024-05-14] MEDS: COLACE PO (20:38)
--- NOTE | 2024-05-14 21:20 | PTCARENOTE ---
Report called to 4W RN, patient transferred to [facility] with all belongings.
[2024-05-14 23:20] VITALS: BP 133/67
--- NOTE | 2024-05-14 23:43 | PTCARENOTE ---
rec'd pt from 4E at 2114. oriented to room. pt denies pain. call reeder in reach
[2024-05-15] MEDS: DUONEB 3 ML INH ×4 (07:35→20:12)
[2024-05-15 07:50] VITALS: BP 135/71
[2024-05-15 08:13] LABS: Hematocrit 39.9 % (39.0-52.0); Hemoglobin 12.6 g/dL (13.0-18.0); Mean Corp Hgb Conc. 31.6 g/dL (33.0-37.0); Mean Corpuscular Hgb 29.3 pg (27.0-31.0); Mean Corpuscular Volume 92.8 fL (80.0-94.0); Mean Platelet Volume 9.7 fL (7.4-10.4); Platelet Count 209 10^3/uL (130-400); Red Cell Dist. Width 13.6 % (11.5-14.5); White Blood Cell Count 6.3 10^3/uL (4.8-10.8)
[2024-05-15 08:55] LABS: ALT (SGPT) 37 U/L (0-50); AST (SGOT) 49 U/L (17-59); Albumin 2.9 g/dl (3.5-5.0); Alkaline Phosphatase 97 U/L (38-126); Blood Urea Nitrogen 20 mg/dl (9-20); Calcium 8.1 mg/dl (8.4-10.2); Carbon Dioxide 28 mmol/L (22-30); Chloride 104 mmol/L (98-107); Estimated Creatinine Clearance 62 ml/min; Glucose 91 mg/dl (70-99); Sodium 139 mmol/L (135-145); Total Bilirubin 0.4 mg/dl (0.2-1.3); Total Protein 5.7 g/dl (6.3-8.2); eGFR > 60.00
[2024-05-15] MEDS: PROCARDIA XL (EXTENDED RELEASE) 90 MG PO (08:55)
[2024-05-15] MEDS: PLAVIX 75 MG PO (08:55)
[2024-05-15] MEDS: TAMIFLU 30 MG PO ×2 (08:55→20:29)
[2024-05-15] MEDS: KEPPRA 500 MG PO ×2 (08:55→20:29)
[2024-05-15] MEDS: MUCINEX 600 MG PO ×2 (08:55→20:29)
[2024-05-15] MEDS: PEPCID 20 MG PO (08:55)
[2024-05-15] MEDS: ZESTRIL 5 MG PO (08:56)
[2024-05-15] MEDS: HEPARIN SC ×2 (08:58→20:30)
[2024-05-15] MEDS: EYE BOTH EYES (09:17)
[2024-05-15] MEDS: ISOPTO CARPINE BOTH EYES (09:17)
--- NOTE | 2024-05-15 09:32 | W.PN.HOSP.TC ---
Today's Communication/Plan
-
wean O2
sit up in bed to promote mucous clearance
continue IV abx and finish tamiflu
Assessment / Plan
Assessment / Plan
Assessment:
Severe Sepsis (tachycardia, tachypnea, lactic acidosis) secondary to pneumonia and Influenza A
Acute Hypoxia respiratory insufficiency 2/2 above
- wean O2 as able; currently on 2L NC
- continue Ceftriaxone, day 08/27, Azithromycin 5 day course completed
- continue Tamiflu day 09/24
- respiratory precautions
- cap IVF
- ST evaluation; for VSE performed 05/14; regular diet/thin liquids
- mucolytics, IS, Acapella
- standing/prn nebs
- PT/OT as able; return to LTC
Nonischemic trop elevation
- peaked at .049
Expressive Aphasia
Hx CVA with R sided weakness
- continue Plavix/Statin
Hx COPD
- no active wheezing heard on exam
- duo-nebs as above
NESSA on CKD IIIa
- creatinine was 1.16 02/2023
- NESSA in setting of sepsis
- NESSA now resolved
- follow BMP
Essential Hypertension
- resume ERIKA and Nifedipine
Epilepsy
- Keppra BID
DVT ppx: SC heparin
Code: DNR/DNI
Anticipated Discharge: > 48 hours
Subjective/Interval History
-
Date of Service: May 15, 2024
denies any new complaints present
now weaned to 2L
Objective Data
-
Labs:
Laboratory Results
05/15/24
07:05
WBC 6.3
Hgb 12.6 L
Hct 39.9
Plt Count 209
Sodium 139
Potassium 4.0
Chloride 104
Carbon Dioxide 28
BUN 20
Creatinine 1.0
Glucose 91
Calcium 8.1 L
Total Bilirubin 0.4
AST 49
ALT 37
Alkaline Phosphatase 97
Vital Signs:
Vital Signs
Temp Pulse Resp BP Pulse Ox
97.5 F 80 20 135/71 92
05/15/24 07:50 05/15/24 08:55 05/15/24 07:50 05/15/24 08:55 05/15/24 07:50
I&O
05/14/24 05/15/24 05/16/24
06:59 06:59 06:59
Intake Total 320 / 320
Output Total 1675 / 1675 550 / 550
Balance -1675 / -1675 -230 / -230
Physical Exam
-
General: No Apparent Distress
HEENT: Normocephalic and Atraumatic
Respiratory: Negative Wheezes
Cardiac: Regular Rhythm and S1/S2
GI: Soft
Genito-urinary: No Costovertebral Tender
Neuro: AO x 3
Hematologic / Lymphatic: No Lymphadenopathy
Psych: Calm
Data Reviewed
-
Total Time Spent with Patient (in minutes): 42
Labs: Labs Reviewed by me
--- NOTE | 2024-05-15 11:51 | PN.CDI ---
CDI
- -
CDI:
Physician Documentation Request
Admit Date: 05/10/24 14:04
Dear Doctor Catherine,
Patient admitted for sepsis.
05/15 Hospitalist PN: 'Acute Hypoxia respiratory insufficiency 2/2 above
- wean O2 as able; currently on 2L NC
- continue Ceftriaxone, day 08/27, Azithromycin 5 day course completed
- continue Tamiflu day 09/24'
Selected Entries
05/11/24
03:32 05/11/24
15:55 05/12/24
07:36
Nasal Cannula flow liters per minute 6 6 6
05/12/24
11:38 05/12/24
19:49 05/12/24
20:46
Nasal Cannula flow liters per minute 5 5 4
Clarify which of the following accurately represents the patient's respiratory status:
Acute hypoxic respiratory failure
Acute hypoxic respiratory insufficiency
Other
Additional information for Respiratory Failure:
Recognized criteria for Respiratory Failure (Source: [facility] Mar 2013)
ABGs: (1 or more) Symptoms Please indicate type if known
1. p)2 <60 or RA SPO2 <91% on RA 1. Tachypnea, SOB, dyspnea Hypoxic
2. pCO2 50 and pH <7.35 2. Use of accessory muscles Hypercapnic
3. pO2 decrease of pCO2 increase by 3. Pallor or cyanosis Hypoxic and Hypercapnic
10 mmHg from baseline if known 4. Anxiety or restlessness Unable to determine
5. Unable to speak in full sentences
Supplemental O2 of > 40% (5LPM) Intubation is not required
Use of terms such as suspected, likely, concern for, or probable (associated with a specific diagnosis that is being evaluated, monitored, or treated as if it exists) are acceptable and can be coded in the inpatient setting, when documented at the
time of discharge.
Thank you,
Renetta Mcdaniel RN, BSN
CDI Specialist
Available via [place] text
Please use your independent medical judgment in providing your response.
--- NOTE | 2024-05-15 13:44 | CM ---
Patient is LTC at [facility]. Patient has a bed hold there per chart review and Liaison Marya at [facility]. Patient to return to [facility] when medically appropriate. CM will continue to follow for discharge planning needs.
Plan; return to SNF;when medically appropriate
please call report to [phone]/fax [phone]
[2024-05-15] MEDS: ROCEPHIN 1000 MG IV (15:15)
[2024-05-15] MEDS: STERILE WATER FOR INJECTION 10 ML IV (15:15)
[2024-05-15] MEDS: ZITHROMAX 500 MG PO (15:15)
[2024-05-15 15:24] VITALS: BP 119/55
[2024-05-15] MEDS: LIPITOR 20 MG PO (17:01)
[2024-05-15] MEDS: XALATAN OPHTHALMIC SOLUTION 1 DROP BOTH EYES (17:02)
[2024-05-15] MEDS: COLACE 100 MG PO (23:16)
[2024-05-15 23:30] VITALS: BP 92/52
[2024-05-16 01:09] VITALS: BP 92/52
[2024-05-16 07:00] VITALS: BP 101/57
[2024-05-16] MEDS: HEPARIN SC ×2 (07:19→19:40)
--- NOTE | 2024-05-16 07:21 | W.PN.HOSP.TC ---
Today's Communication/Plan
-
wean O2
likely DC back to LTC/SNF in 24 hours
Assessment / Plan
Assessment / Plan
Assessment:
Severe Sepsis (tachycardia, tachypnea, lactic acidosis) secondary to pneumonia and Influenza A
Acute Hypoxia respiratory insufficiency only 2/2 above
- wean O2 as able; currently on 2L NC
- continue Ceftriaxone, day 5/7, Azithromycin 5 day course completed
- completed 5 day Tamiflu course
- respiratory precautions
- cap IVF
- ST evaluation; for VSE performed 05/14; regular diet/thin liquids
- mucolytics, IS, Acapella
- standing/prn nebs
- PT/OT as able; return to LTC
Nonischemic trop elevation
- peaked at .049
Expressive Aphasia
Hx CVA with R sided weakness
- continue Plavix/Statin
Hx COPD
- no active wheezing heard on exam
- duo-nebs as above
NESSA on CKD IIIa
- creatinine was 1.16 02/2023
- NESSA in setting of sepsis
- NESSA now resolved
- follow BMP
Essential Hypertension
- resume ERIKA and Nifedipine
Epilepsy
- Keppra BID
DVT ppx: SC heparin
Code: DNR/DNI
Anticipated Discharge: Within 24 hours
Subjective/Interval History
-
Date of Service: May 16, 2024
no complaints
on 2L NC
Objective Data
-
Labs:
Laboratory Results
05/16/24
06:00
WBC Pending
Hgb Pending
Hct Pending
Plt Count Pending
Sodium Pending
Potassium Pending
Chloride Pending
Carbon Dioxide Pending
BUN Pending
Creatinine Pending
Glucose Pending
Calcium Pending
Vital Signs:
Vital Signs
Temp Pulse Resp BP Pulse Ox
98.8 F 81 18 92/52 92
05/15/24 23:30 05/15/24 23:30 05/15/24 23:30 05/15/24 23:30 05/15/24 23:30
I&O
05/15/24 05/16/24 05/17/24
06:59 06:59 06:59
Intake Total 320 / 320 960 / 960
Output Total 550 / 550
Balance -230 / -230 960 / 960
Physical Exam
-
General: No Apparent Distress
HEENT: Normocephalic and Atraumatic
Respiratory: Negative Wheezes
Cardiac: Regular Rhythm and S1/S2
GI: Soft and Nontender
Musculoskeletal: No Edema
Neuro: AO x 3
Hematologic / Lymphatic: No Lymphadenopathy
Psych: Calm
Data Reviewed
-
Total Time Spent with Patient (in minutes): 42
Labs: Labs Reviewed by me
[2024-05-16] MEDS: DUONEB 3 ML INH ×4 (08:02→20:14)
[2024-05-16] MEDS: ZESTRIL PO (08:20)
[2024-05-16] MEDS: KEPPRA 500 MG PO ×2 (08:21→19:39)
[2024-05-16] MEDS: EYE BOTH EYES (08:22)
[2024-05-16] MEDS: PROCARDIA XL (EXTENDED RELEASE) PO (08:22)
[2024-05-16] MEDS: MUCINEX 600 MG PO ×2 (08:22→19:39)
[2024-05-16] MEDS: ISOPTO CARPINE BOTH EYES (08:22)
[2024-05-16] MEDS: PEPCID 20 MG PO (08:22)
[2024-05-16] MEDS: PLAVIX 75 MG PO (08:22)
[2024-05-16 08:57] LABS: Blood Urea Nitrogen 22 mg/dl (9-20); Calcium 8.4 mg/dl (8.4-10.2); Carbon Dioxide 30 mmol/L (22-30); Chloride 107 mmol/L (98-107); Estimated Creatinine Clearance 56 ml/min; Glucose 95 mg/dl (70-99); Potassium 4.4 mmol/L (3.5-5.1); Sodium 142 mmol/L (135-145); eGFR > 60.00
[2024-05-16 09:11] LABS: Hematocrit 39.8 % (39.0-52.0); Hemoglobin 12.8 g/dL (13.0-18.0); Mean Corp Hgb Conc. 32.2 g/dL (33.0-37.0); Mean Corpuscular Volume 93.2 fL (80.0-94.0); Mean Platelet Volume 9.6 fL (7.4-10.4); Platelet Count 290 10^3/uL (130-400); Red Blood Cell Count 4.27 10^6/uL (4.70-6.10); Red Cell Dist. Width 13.8 % (11.5-14.5); White Blood Cell Count 7.2 10^3/uL (4.8-10.8)
[2024-05-16] MEDS: STERILE WATER FOR INJECTION 10 ML IV (13:34)
[2024-05-16] MEDS: ROCEPHIN 1000 MG IV (13:35)
[2024-05-16 15:00] VITALS: BP 129/63
[2024-05-16] MEDS: XALATAN OPHTHALMIC SOLUTION 1 DROP BOTH EYES (17:42)
[2024-05-16] MEDS: LIPITOR 20 MG PO (17:42)
[2024-05-16] MEDS: COLACE 100 MG PO (21:16)
[2024-05-16 23:30] VITALS: BP 115/55
[2024-05-17 07:30] VITALS: BP 96/52
[2024-05-17] MEDS: HEPARIN SC (07:45)
[2024-05-17] MEDS: PROCARDIA XL (EXTENDED RELEASE) PO (07:46)
[2024-05-17] MEDS: ZESTRIL PO (07:46)
[2024-05-17] MEDS: PLAVIX 75 MG PO (07:47)
[2024-05-17] MEDS: MUCINEX 600 MG PO (07:47)
[2024-05-17] MEDS: ISOPTO CARPINE BOTH EYES (07:47)
[2024-05-17] MEDS: KEPPRA 500 MG PO (07:47)
[2024-05-17] MEDS: EYE BOTH EYES (07:47)
[2024-05-17] MEDS: PEPCID 20 MG PO (07:47)
[2024-05-17] MEDS: DUONEB 3 ML INH ×2 (07:48→11:18)
--- NOTE | 2024-05-17 12:00 | CM ---
CM reviewed chart, patient for discharge today. Patient seen bedside, agreeable to discharge plan. IMM verbally reviewed, declined copy, placed in chart. Marya updated with discharge plan, 3:30 p.m. ambulance transport scheduled. CM will continue to
follow for all discharge planning needs.
Plan; return to [facility], 3:30 p.m. ambulance transport
[facility]
Report: [phone]
--- NOTE | 2024-05-17 13:02 | W.PN.HOSP.TC ---
Today's Communication/Plan
-
dc to SNF
Assessment / Plan
Assessment / Plan
Assessment:
Severe Sepsis (tachycardia, tachypnea, lactic acidosis) secondary to pneumonia and Influenza A
Acute Hypoxia respiratory insufficiency only 2/2 above
- wean O2 as able; currently on 2L NC
- continue Ceftriaxone, day 6 - dc on Cefdinir for 1 additional day
- Azithromycin 5 day course completed
- completed 5 day Tamiflu course
- respiratory precautions
- cap IVF
- ST evaluation; for VSE performed 05/14; regular diet/thin liquids
- mucolytics, IS, Acapella
- standing/prn nebs
- PT/OT as able; return to LTC
Nonischemic trop elevation
- peaked at .049
Expressive Aphasia
Hx CVA with R sided weakness
- continue Plavix/Statin
Hx COPD
- no active wheezing heard on exam
- duo-nebs as above
NESSA on CKD IIIa
- creatinine was 1.16 02/2023
- NESSA in setting of sepsis
- NESSA now resolved
- follow BMP
Essential Hypertension
- resume ERIKA and Nifedipine
Epilepsy
- Keppra BID
DVT ppx: SC heparin
Code: DNR/DNI
More than 30 minutes spent in discharge including
Final examination of the patient
Summarizing hospital stay
Instructions for continuing care to all relevant caregivers
Preparation of discharge records, prescriptions, and referral forms
Total time spent (in minutes):41
Anticipated Discharge: Today
Subjective/Interval History
-
Date of Service: May 17, 2024
no new complaints presently
stable on 2L NC >90% sats
Objective Data
-
Vital Signs:
Vital Signs
Temp Pulse Resp BP Pulse Ox
98.2 F 87 16 96/52 95
05/17/24 07:30 05/17/24 11:20 05/17/24 11:20 05/17/24 07:46 05/17/24 11:20
I&O
05/16/24 05/17/24 05/18/24
06:59 06:59 06:59
Intake Total 960 / 960 900 / 900
Balance 960 / 960 900 / 900
Physical Exam
-
General: No Apparent Distress
HEENT: Normocephalic and Atraumatic
Respiratory: Negative Wheezes
Cardiac: Regular Rhythm and S1/S2
GI: Soft and Nontender
Musculoskeletal: No Edema
Neuro: AO x 3
Psych: Calm
Data Reviewed
-
Total Time Spent with Patient (in minutes): 45
Labs: Labs Reviewed by me
--- NOTE | 2024-05-17 13:07 | W.DS.TRANS ---
DC Summary - Radio Interference Supervisor
-
Discharge Instructions:
Discharge Diagnosis/Procedures influenza A, pneumonia, hypoxia
Diet Regular
Activity As tolerated
Instructions:
Stand-Alone Forms:
Changes to Home Medications: Yes
Discharge Medications:
DC Medications w/original date entered in [employer]
acetaminophen 325 mg tablet 650 mg PO Q4HPRN PRN mild pain, 1-4/fever>100F 02/09/13
latanoprost 0.005 % eye drops 1 drp BOTH EYES QPM Eye Condition 02/09/13
magnesium hydroxide 400 mg/5 mL oral suspension 30 ml PO DAILYPRN PRN if no bm in 3 days 02/09/13
sodium phosphates 19 gram-7 gram/118 mL enema (Enema) 118 ml [place] DAILYPRN PRN if dulcolax ineff in 24H ##0 02/07/15
bisacodyl 10 mg rectal suppository (OneLAX Bisacodyl) 10 mg [place] DAILYPRN PRN if MOM ineff in 24 hours 03/29/17
atorvastatin 20 mg tablet 20 mg PO QPM High Cholesterol 02/07/18
clopidogrel 75 mg tablet 75 mg PO DAILY Blood Clot Prevention/Tx 02/07/18
docusate sodium 100 mg capsule 100 mg PO HS Constipation 06/09/18
pilocarpine HCl 1 % eye drops 1 drops BOTH EYES DAILY Eye Condition 08/20/19
famotidine 20 mg tablet (Pepcid) 20 mg PO DAILY Gastrointestinal Issue 05/10/24
guaifenesin 600 mg tablet, extended release 12 hr (Mucus Relief ER) 600 mg PO BID Congestion 05/10/24
levetiracetam 500 mg tablet 500 mg PO BID Neurological Condition 05/11/24
cefdinir 300 mg capsule 300 mg PO BID #2 caps 05/17/24
ipratropium 0.5 mg-albuterol 3 mg (2.5 mg base)/3 mL nebulization soln 3 ml inhalation R Q4HPRN PRN wheezing #90 mL 05/17/24
ipratropium 0.5 mg-albuterol 3 mg (2.5 mg base)/3 mL nebulization soln 3 ml inhalation R QID #90 mL 05/17/24
lisinopril 5 mg tablet 5 mg PO DAILY Blood Pressure #0 tabs 05/17/24
nifedipine 30 mg tablet,extended release 30 mg PO DAILY Blood Pressure #30 tabs 05/17/24
Home Medication Changes
nifedipine 30mg daily
Pending Results: No
Total time spent discharging patient (in min): 41
[2024-05-17] MEDS: ROCEPHIN 1000 MG IV (13:51)
[2024-05-17] MEDS: STERILE WATER FOR INJECTION 10 ML IV (13:51)
[2024-05-17 14:16] VITALS: BP 104/54
== END 2024-05-17 16:03 | DRG 871 ==
LOC: 4 WEST ACU 14:04
PROVIDERS: ADMITTING PHYSICIAN Student in an Organized Health Care Education/Training Program; ATTENDING PHYSICIAN Internal Medicine; EMERGENCY PHYSICIAN Emergency Medicine; FAMILY PHYSICIAN Internal Medicine
DX: A41.89 Other specified sepsis (principal); J09.X1 Influenza due to identified novel influenza A virus with pneumonia; F03.93 Unspecified dementia, unspecified severity, with mood disturbance; J44.0 Chronic obstructive pulmonary disease with (acute) lower respiratory infection; R47.01 Aphasia; N17.9 Acute kidney failure, unspecified; I5A Non-ischemic myocardial injury (non-traumatic); I69.351 Hemiplegia and hemiparesis following cerebral infarction affecting right dominant side; R65.20 Severe sepsis without septic shock; G40.909 Epilepsy, unspecified, not intractable, without status epilepticus; F32.A Depression, unspecified; R06.03 Acute respiratory distress; N18.31 Chronic kidney disease, stage 3a; I13.10 Hypertensive heart and chronic kidney disease without heart failure, with stage 1 through stage 4 chronic kidney disease, or unspecified chronic kidney disease; I73.9 Peripheral vascular disease, unspecified; R09.02 Hypoxemia; R06.89 Other abnormalities of breathing; Z66 Do not resuscitate; Z87.891 Personal history of nicotine dependence; Z88.6 Allergy status to analgesic agent; Z11.52 Encounter for screening for COVID-19
CPT/HCPCS: 71045; 74230; 80048; 80053; 83605; 83735; 83880; 84484; 85025; 85027; 87070; 87502; 87811; 92526; 92610; 92611; 93005; 93306; 94640; 97161; 97166; 97530; 97535; 99291